=== PATIENT | male | born 1950 | race Caucasian/White ===

== ENCOUNTER 2016-09-09 17:07 | Emergency (ER) | payer MEDICARE, MEDICAID ==
--- NOTE | 2016-09-09 17:42 | RAD ---
INDICATION: Short of breath COMPARISON: Chest x-ray May 19, 2016; CT chest August 02, 2014 TECHNIQUE: An AP portable view obtained at 1720 hours is submitted. FINDINGS: Bones/Soft Tissues: There are no acute bony findings. There is postoperative change in the right chest with rib resection and deformity. There is a lesion with chondroid matrix in the inferior glenoid as also described on prior CT examinations. Cardiomediastinal: The cardiomediastinal silhouette is normal. Lungs: There are no infiltrates. There is hyperinflation. Pleura: There are no pleural effusions. Other: None IMPRESSION: NO ACTIVE DISEASE.
[2016-09-09 19:10] LABS: Hematocrit 47 % (42-52); Hemoglobin 15.2 g/dl (14.0-18.0); Mean Corpuscular HGB Conc 33 g/dl (31-36); Mean Corpuscular Hemoglobin 30 pg (27-31); Mean Corpuscular Volume 93 fL (80-94); Mean Platelet Volume 8 um3 (7.4-10.4); Red Blood Count 5.02 10^6/ul (4.0-5.4); Red Cell Distribution Width 14 % (10.5-15); White Blood Count 13.3 10^3/ul (3.5-10.8)
[2016-09-09 19:29] LABS: Albumin 4.4 g/dL (3.2-5.2); BUN/Creatinine Ratio 14.9 (8-20); Calcium 9.7 mg/dL (8.6-10.3); EGFR African American 112.6 (>60); EGFR Non-African American 87.5 (>60); Globulin 2.9 g/dL (2-4); Total Bilirubin 0.6 mg/dL (0.2-1.0); Total Protein 7.3 g/dL (6.4-8.9)
[2016-09-09 19:31] LABS: Troponin I 0.01 ng/mL (<0.04)
[2016-09-09 19:58] LABS: TSH (Thyroid Stimulating Horm) 0.79 mcIU/mL (0.34-5.60)
[2016-09-09 20:05] LABS: Free T4 1.02 ng/dL (0.61-1.12)
[2016-09-09] MEDS ORDERED: LORazepam INJ* 2 MG/ML 1 ML VIAL IV PUSH ONE (21:07)
[2016-09-09] MEDS ORDERED: NS 0.9% 1000 ML* 2,000 ML IV ONE (22:38)
[2016-09-09 23:58] VITALS: BP 154/95
--- NOTE | 2016-09-25 20:33 | ED ---
Jocelyn Moura Anna, scribed for Erwin Hawkins MD on 09/09/16 at 1806 . Shortness of Breath - HPI Summary HPI Summary: Patient is a 66 y/o male coming to [facility] presenting with sudden onset of constant weakness that began less than 32 hours ago. He additionally reports SOB , diarrhea since last night, myalgia, and nausea. Denies BP, coughing, wheezing , and fever. He reports leg cramping now and also at baseline. No known sick contacts. His history is significant for COPD and chronic bronchitis. Pt uses 3 L of O2 at baseline. His mother two days ago. - History of Current Complaint Time Seen by Provider: 09/09/16 17:12 Hx Obtained From: Patient - Allergy/Home Medications Allergies/Adverse Reactions: Allergies Allergy/AdvReac Type Severity Reaction Status Date / Time Milk Protein Extract Allergy Severe SWELLING Verified 05/19/16 14:29 [From Spiriva] OF LIPS,TONGUE AND FACE Tiotropium [From Spiriva] Allergy Severe SWELLING Verified 05/19/16 14:29 OF LIPS,TONGUE AND FACE Iodinated Contrast Media AdvReac Intermediate See Comment Verified 05/19/16 14: 29 [IV CONTRAST DYE] Home Medications: Home Medications Ipratropium HFA INHALER* [Atrovent Hfa Inhaler*] 1 puff INH QID PRN 09/09/16 [ History Confirmed 09/09/16] Tamsulosin CAP* [Flomax CAP*] 0.4 mg PO DAILY 09/09/16 [History Confirmed ] PMH/Surg Hx/FS Hx/Imm Hx Endocrine/Hematology History: Denies: Hx Anticoagulant Therapy, Hx Diabetes, Hx Thyroid Disease, Hx Anemia Comment Only: Other Endocrine/Hematological Disorders - Hemoptysis Cardiovascular History: Reports: Hx Angina Denies: Hx Hypertension, Hx Pacemaker/ICD Respiratory History: Reports: Hx Chronic Bronchitis, Hx Chronic Obstructive Pulmonary Disease (COPD) - emphysema, Other Respiratory Problems/Disorders - O2 at 3L 24hours/day, hemoptysis hx Denies: Hx Asthma GI History: Reports: Other GI Disorders - Hernias with mesh implanted Denies: Hx Jaundice History: Denies: Hx Renal Disease Musculoskeletal History: Reports: Hx Congenital Bone Abnormalities - Osteochromatosis, Other Musculoskeletal History - ribs removed, chronic muscle cramps Sensory History: Reports: Hx Cataracts, Hx Contacts or Glasses Denies: Hx Hearing Aid Opthamlomology History: Reports: Hx Cataracts, Hx Contacts or Glasses Neurological History: Reports: Hx Migraine, Hx Transient Ischemic Attacks (TIA) Denies: Hx Dementia, Hx Headaches, Hx Seizures Psychiatric History: Reports: Hx Anxiety, Hx Depression - ON MEDS, Hx Substance Abuse Denies: Hx Panic Disorder, Hx of Violent Episodes Against Others - Surgical History Surgery Procedure, Year, and Place: 2010 [place] [facility] [place] DIFFERENT SURGERIES FOR OSTEOCHROMOTOSIS (TUMORS), [place],. [place], [place] , [place] Hx Anesthesia Reactions: No - Immunization History Date of Tetanus Vaccine: up to date Date of Influenza Vaccine: 2016 Infectious Disease History: Denies: Hx Hepatitis, Hx Human Immunodeficiency Virus (HIV), Traveled Outside the in Last 30 Days - Family History Known Family History: Negative: Cardiac Disease - Social History Alcohol Use: None Hx Substance Use: No Substance Use Type: Reports: None Substance Use Comment - Amount & Last Used: poly drug abuse until 2001 Hx Tobacco Use: Yes Smoking Status (MU): Former Smoker Type: Cigarettes, Pipe Amount Used/How Often: 1 pk per day Length of Time of Smoking/Using Tobacco: 38 Have You Smoked in the Last Year: No Review of Systems Negative: Fever Negative: Chest Pain Positive: Shortness Of Breath. Negative: Cough, Other - denies wheezing Positive: Diarrhea, Nausea. Negative: Abdominal Pain, Vomiting Negative: dysuria, hematuria Positive: Myalgia, Other - Leg cramping. Negative: Edema Negative: Rash Neurological: Other - Denies dizziness Positive: Weakness All Other Systems Reviewed And Are Negative: Yes Physical Exam - Summary Physical Exam Summary: Constitutional: Well-developed, Well-nourished, Alert. (-) Distressed Skin: Warm, Dry HENT: Normocephalic; Atraumatic Eyes: Conjunctiva normal Neck: Musculoskeletal ROM normal neck. (-) JVD, (-) Stridor, (-) Tracheal deviation Cardio: Rhythm regular, rate tachycardic at 140 bpm, Heart sounds normal; Intact distal pulses; The pedal pulses are 2+ and symmetric. Radial pulses are 2 + and symmetric. ~(-) Murmur Pulmonary/Chest wall: Effort normal. (-) Respiratory distress, (-) Wheezes, (-) Rales Abd: Soft, (-) Tenderness, ~(-) Distension, (-) Guarding, (-) Rebound Musculoskeletal: (-) Edema Lymph: (-) Cervical adenopathy Neuro: Alert, Oriented x3 Psych: Patient is anxious-appearing with fast speech. Triage Information Reviewed: Yes Vital Signs On Initial Exam: Temp Pulse Resp BP Pulse Ox 98.4 F 111 26 162/92 100 09/09/16 18:46 09/09/16 19:00 09/09/16 19:00 09/09/16 19:00 09/09/16 19:00 Vital Signs Reviewed: Yes Diagnostics - Laboratory Result Diagrams: 09/09/16 18:55 09/09/16 18:55 Lab Statement: Any lab studies that have been ordered have been reviewed, and results considered in the medical decision making process. - Radiology CXR Xray Interpretation: No Acute Changes Radiology Interpretation Completed By: Radiologist - EKG 1703 Cardiac Rate: Tachycardia EKG Rhythm: Sinus Rhythm ST Segment: Normal Ectopy: None EKG Interpretation: no STEMI 2128 Cardiac Rate: Tachycardia - 138 bpm EKG Rhythm: Sinus Tachycardia ST Segment: Normal Ectopy: None EKG Interpretation: no STEMI Re-Evaluation - Re-Evaluation First Eval Re-Evaluation Time: 22:24 Change: Improved Comment: Patient reports that he is feeling much better and symptoms have resolved. Discussed results and plan of care with patient. Patient agrees with plan. Course/Dx - Course Assessment/Plan: Patient is a 66 y/o male coming to [facility] presenting with sudden onset of constant weakness that began less than 32 hours ago. He additionally reports SOB, diarrhea since last night, myalgia, and nausea. Denies BP, coughing, wheezing, and fever. He reports leg cramping now and also at baseline. No known sick contacts. His history is significant for COPD and chronic bronchitis. His mother two days ago. Upon PE, patient is anxious-appearing with fast speech. Pt uses 3 L of O2 at baseline. CXR reveals no acute disease. EKG reveals sinus tachycardia at 133 bpm. Repeat EKG reveals sinus tachycardia at 138 bpm. Labs reveal WBC of 13.3. Patient's WBC is chronically elevated, so this is baseline for him. Patient reports he is feeling better upon re-evaluation. He will be discharged home. - Diagnoses Provider Diagnoses: Adjustment disorder, Anxiety, Sinus tachycardia Discharge - Discharge Plan Condition: Stable Disposition: HOME Referrals: Parker Akins MD [Primary Care Provider] - Additional Instructions: Follow up with primary care physician within 48 hours. Return to the emergency department for changing or worsening symptoms. The documentation as recorded by the Jocelyn wick Anna accurately reflects the service I personally performed and the decisions made by , Erwin Hawkins MD.
== END 2016-09-10 00:06 | disposition home or self-care (01) ==
LOC: ED 17:07
DX: F43.20 Adjustment disorder, unspecified (principal); R00.0 Tachycardia, unspecified; F41.9 Anxiety disorder, unspecified; M79.1 Myalgia; R06.02 Shortness of breath; R53.1 Weakness; Z87.891 Personal history of nicotine dependence
CPT/HCPCS: 36415; 71010; 80053; 83605; 84439; 84443; 84484; 85025; 85379; 87502; 93005; 96374; 99284; J2060

== ENCOUNTER 2016-09-12 10:25 | Emergency (ER) | payer MEDICAID, MEDICARE ==
--- NOTE | 2016-09-12 11:16 | RAD ---
HISTORY: Chest pain COMPARISONS: September 09, 2016 VIEWS:1: Single frontal portable view of the chest at 11:00 AM FINDINGS: LINES AND TUBES: None. CARDIOMEDIASTINAL SILHOUETTE: The cardiomediastinal silhouette is normal for portable technique. PLEURA: The costophrenic angles are sharp. No pleural abnormalities are noted. LUNG PARENCHYMA: There is hyperinflation. ABDOMEN: The upper abdomen is clear. There is no subphrenic gas. BONES AND SOFT TISSUES: No bone or soft tissue abnormalities are noted. IMPRESSION: HYPERINFLATION. NO ACTIVE CARDIOPULMONARY DISEASE.
[2016-09-12 11:19] LABS: Hematocrit 44 % (42-52); Hemoglobin 14.4 g/dl (14.0-18.0); Mean Corpuscular HGB Conc 33 g/dl (31-36); Mean Corpuscular Hemoglobin 30 pg (27-31); Mean Corpuscular Volume 92 fL (80-94); Mean Platelet Volume 8 um3 (7.4-10.4); Red Blood Count 4.78 10^6/ul (4.0-5.4); Red Cell Distribution Width 14 % (10.5-15); White Blood Count 10.2 10^3/ul (3.5-10.8)
[2016-09-12 11:32] LABS: BUN/Creatinine Ratio 9.2 (8-20); Calcium 9.1 mg/dL (8.6-10.3); EGFR African American 112.6 (>60); EGFR Non-African American 87.5 (>60); Globulin 2.8 g/dL (2-4); Magnesium 1.8 mg/dL (1.9-2.7); Potassium 3.1 mmol/L (3.5-5.0); Total Bilirubin 0.5 mg/dL (0.2-1.0); Total Protein 6.8 g/dL (6.4-8.9)
[2016-09-12 11:35] LABS: Troponin I 0.01 ng/mL (<0.04)
[2016-09-12] MEDS ORDERED: NS 0.9% 1000 ML* 2,000 ML IV ONE (12:33)
[2016-09-12] MEDS ORDERED: Pantoprazole IV* 40 MG IV ONE (12:33)
[2016-09-12] MEDS ORDERED: Magnesium Sulfate 2 GM IV* 2 GM/50 ML BAG IVPB ONE (12:33)
--- NOTE | 2016-09-12 13:25 | RAD ---
CLINICAL HISTORY: Abdominal pain, diarrhea COMPARISON: March 27, 2009 TECHNIQUE: Multiple contiguous axial CT scans were obtained of the abdomen and pelvis, without intravenous contrast enhancement. Coronal and sagittal multiplanar reformations are submitted for review. Oral contrast was not administered. FINDINGS: The study is limited by the lack of intravenous contrast. This limits evaluation of the solid organs and vasculature. Evaluation is also limited by patient breathing motion artifact. LUNG BASES: The lung bases are clear. LIVER: The liver is normal in shape, size, contour, and attenuation. BILE DUCTS: There is no intrahepatic or extrahepatic biliary dilatation. GALLBLADDER: The gallbladder is normal, without pericholecystic inflammatory change. PANCREAS: The pancreas is normal, without mass or ductal dilatation. SPLEEN: Normal in size and appearance. UPPER GI TRACT: Evaluation of the gastrointestinal tract is limited by incomplete gastric distention. The upper GI tract is unremarkable. SMALL BOWEL AND MESENTERY: The small bowel is normal in contour, course, and caliber. There is no obstruction or dilatation. COLON: The colon is normal in contour, course, caliber. There is no pericolonic inflammatory change. ADRENALS: Normal bilaterally. KIDNEYS: The kidneys are normal in shape, size, contour, and axis. There is no hydronephrosis or nephrolithiasis. BLADDER: The bladder is smooth in contour. PELVIC ORGANS: The prostate gland is normal. The seminal vesicles are symmetric. AORTA: There is mild atherosclerotic disease of the abdominal aorta. IVC: Unremarkable LYMPH NODES: There is no lymphadenopathy by size criteria. ABDOMINAL WALL: There is no evidence for abdominal wall hernia. BONES AND SOFT TISSUES: Again noted are multiple pelvic and femoral osteochondromas, with associated degenerative changes. OTHER: None IMPRESSION: 1. LIMITED STUDY. 2. AGAIN NOTED ARE MULTIPLE PELVIC AND FEMORAL OSTEOCHONDROMAS WITH ASSOCIATED DEGENERATIVE CHANGE. 3. NO ACUTE NONCONTRAST CT PATHOLOGY OF THE VISUALIZED ABDOMEN AND PELVIS.
--- NOTE | 2016-09-12 14:44 | ED ---
Ulises Moura Janilya, scribed for Arnold Hooper MD on 09/12/16 at 1243 . Shortness of Breath - HPI Summary HPI Summary: A 66 y/o [facility] presenting w/ a gradual onset of constant SOB starting 3-4 days ago. Pt states that he's recently been under a lot of stress because his mother 5 days ago. In addition to dyspnea, pt reports he 's been dry heaving and having the taste of his medicine in the mouth. He has not actually vomited because nothing comes up. He also states his heart is going through his chest and that there is burning in his stomach. In addition, he has been having diarrhea for the past 5-6 days with no blood in stool. He also has abd pain since last night. Pt says that he drank milk to alleviate the abd pain with no relief. Pt is not on Abx. Pt was seen here on , Sep 09, 2016 for COPD exacerbation. - History of Current Complaint Chief Complaint: EDChestPainROMI Time Seen by Provider: 09/12/16 11:44 Hx Obtained From: Patient Onset/Duration: Gradual Onset, Lasting Days, Still Present Timing: Constant Current Severity: Moderate Aggrevating Factors: Nothing Alleviating Factors: Nothing - Allergy/Home Medications Allergies/Adverse Reactions: Allergies Allergy/AdvReac Type Severity Reaction Status Date / Time Milk Protein Extract Allergy Severe SWELLING Verified 05/19/16 14:29 [From Spiriva] OF LIPS,TONGUE AND FACE Tiotropium [From Spiriva] Allergy Severe SWELLING Verified 05/19/16 14:29 OF LIPS,TONGUE AND FACE Iodinated Contrast Media AdvReac Intermediate See Comment Verified 05/19/16 14: 29 [IV CONTRAST DYE] Home Medications: Home Medications Albuterol HFA INHALER* [Ventolin HFA Inhaler*] 09/12/16 [History] Atrovent 09/12/16 [History] Docusate Sodium [Stool Softener] 100 mg PO 09/12/16 [History] PMH/Surg Hx/FS Hx/Imm Hx Previously Healthy: Yes Endocrine/Hematology History: Denies: Hx Anticoagulant Therapy, Hx Diabetes, Hx Thyroid Disease, Hx Anemia Comment Only: Other Endocrine/Hematological Disorders - Hemoptysis Cardiovascular History: Reports: Hx Angina Denies: Hx Hypertension, Hx Pacemaker/ICD Respiratory History: Reports: Hx Chronic Bronchitis, Hx Chronic Obstructive Pulmonary Disease (COPD) - emphysema, Other Respiratory Problems/Disorders - O2 at 3L 24hours/day, hemoptysis hx Denies: Hx Asthma GI History: Reports: Other GI Disorders - Hernias with mesh implanted Denies: Hx Jaundice History: Denies: Hx Renal Disease Musculoskeletal History: Reports: Hx Congenital Bone Abnormalities - Osteochromatosis, Other Musculoskeletal History - ribs removed, chronic muscle cramps Sensory History: Reports: Hx Cataracts, Hx Contacts or Glasses Denies: Hx Hearing Aid Opthamlomology History: Reports: Hx Cataracts, Hx Contacts or Glasses Neurological History: Reports: Hx Migraine, Hx Transient Ischemic Attacks (TIA) Denies: Hx Dementia, Hx Headaches, Hx Seizures Psychiatric History: Reports: Hx Anxiety, Hx Depression - ON MEDS, Hx Substance Abuse Denies: Hx Panic Disorder, Hx of Violent Episodes Against Others - Surgical History Surgery Procedure, Year, and Place: 2010 LEFT INGUINAL HERNIA SURGERY, [place] [address] DIFFERENT SURGERIES FOR OSTEOCHROMOTOSIS (TUMORS), [place],. [place], [place] , [place] Hx Anesthesia Reactions: No - Immunization History Date of Tetanus Vaccine: up to date Date of Influenza Vaccine: 2016 Infectious Disease History: No Infectious Disease History: Denies: Hx Hepatitis, Hx Human Immunodeficiency Virus (HIV), Traveled Outside the in Last 30 Days - Social History Alcohol Use: None Hx Substance Use: No Substance Use Type: Reports: None Substance Use Comment - Amount & Last Used: poly drug abuse until 2001 Hx Tobacco Use: Yes Smoking Status (MU): Former Smoker Type: Cigarettes, Pipe Amount Used/How Often: 1 pk per day Length of Time of Smoking/Using Tobacco: 38 Have You Smoked in the Last Year: No Review of Systems Positive: Palpitations - "heart going through the chest" Positive: Shortness Of Breath Positive: Abdominal Pain, Diarrhea - no blood in stool, Other - dry heaving; burning in stomach. . Negative: Vomiting All Other Systems Reviewed And Are Negative: Yes Physical Exam Triage Information Reviewed: Yes Vital Signs On Initial Exam: Initial Vitals Temp Pulse Resp BP Pulse Ox 98.6 F 133 28 139/100 91 09/12/16 10:28 09/12/16 10:28 09/12/16 10:28 09/12/16 10:28 09/12/16 10:28 Vital Signs Reviewed: Yes Appearance: Positive: Well-Appearing, No Pain Distress Skin: Positive: Warm, Skin Color Reflects Adequate Perfusion, Dry Head/Face: Positive: Normal Head/Face Inspection Eyes: Positive: EOMI, ARAVIND ENT: Positive: Normal ENT inspection Neck: Positive: Supple, Nontender Respiratory/Lung Sounds: Positive: Clear to Auscultation, Breath Sounds Present , Wheezes - occasional wheezing in lungs Cardiovascular: Positive: Tachycardia Abdomen Description: Positive: Other: - Mild mid abd tenderness. Sulfur smelling burps.. Negative: Nontender, Soft Bowel Sounds: Positive: Hypoactive Musculoskeletal: Positive: Normal, Strength/ROM Intact Neurological: Positive: Normal, Sensory/Motor Intact, Alert, Oriented to Person Place, Time Psychiatric: Positive: Affect/Mood Appropriate Diagnostics - Vital Signs Vital Signs Temp Pulse Resp BP Pulse Ox 09/12/16 11:22 114 25 98 09/12/16 10:28 98.6 F 133 28 139/100 91 - Laboratory Lab Results: Lab Results 09/12/16 09/12/16 Range/Units 10:55 10:55 WBC 10.2 (3.5-10.8) 10^3/ul RBC 4.78 (4.0-5.4) 10^6/ul Hgb 14.4 (14.0-18.0) g/dl Hct 44 (42-52) % MCV 92 (80-94) fL MCH 30 (27-31) pg MCHC 33 (31-36) g/dl RDW 14 (10.5-15) % Plt Count 397 (150-450) 10^3/ul MPV 8 (7.4-10.4) um3 Neut % (Auto) 69.1 (38-83) % Lymph % (Auto) 18.1 L (25-47) % Pleasants % (Auto) 10.9 H (1-9) % Eos % (Auto) 0.9 (0-6) % Baso % (Auto) 1.0 (0-2) % Absolute Neuts (auto) 7.1 (1.5-7.7) 10^3/ul Absolute Lymphs (auto) 1.9 (1.0-4.8) 10^3/ul Absolute Monos (auto) 1.1 H (0-0.8) 10^3/ul Absolute Eos (auto) 0.1 (0-0.6) 10^3/ul Absolute Basos (auto) 0.1 (0-0.2) 10^3/ul Absolute Nucleated RBC 0.01 10^3/ul Nucleated RBC % 0.1 Sodium 136 (133-145) mmol/L Potassium 3.1 L (3.5-5.0) mmol/L Chloride 101 (101-111) mmol/L Carbon Dioxide 30 (22-32) mmol/L Anion Gap 5 (2-11) mmol/L BUN 8 (6-24) mg/dL Creatinine 0.87 (0.67-1.17) mg/dL Est GFR ( Amer) 112.6 (>60) Est GFR (Non-Af Amer) 87.5 (>60) BUN/Creatinine Ratio 9.2 (8-20) Glucose 93 (70-100) mg/dL Calcium 9.1 (8.6-10.3) mg/dL Magnesium 1.8 L (1.9-2.7) mg/dL Total Bilirubin 0.50 (0.2-1.0) mg/dL AST 32 (13-39) U/L ALT 32 (7-52) U/L Alkaline Phosphatase 72 (34-104) U/L Total Creatine Kinase 319 H (10-223) U/L CK-MB (CK-2) 8.5 H (0.6-6.3) ng/mL Troponin I 0.01 (<0.04) ng/mL Total Protein 6.8 (6.4-8.9) g/dL Albumin 4.0 (3.2-5.2) g/dL Globulin 2.8 (2-4) g/dL Albumin/Globulin Ratio 1.4 (1-3) Result Diagrams: 09/12/16 10:55 09/12/16 10:55 Lab Statement: Any lab studies that have been ordered have been reviewed, and results considered in the medical decision making process. - Radiology CXR Xray Interpretation: Positive (See Comments) - IMPRESSION: HYPERINFLATION. NO ACTIVE CARDIOPULMONARY DISEASE. Radiology Interpretation Completed By: Radiologist - CT abd/pel CT Interpretation: Positive (See Comments) - IMPRESSION: 1. LIMITED STUDY. 2. AGAIN NOTED ARE MULTIPLE PELVIC AND FEMORAL OSTEOCHONDROMAS WITH ASSOCIATED DEGENERATIVE CHANGE. 3. NO ACUTE NONCONTRAST CT PATHOLOGY OF THE VISUALIZED ABDOMEN AND PELVIS. CT Interpretation Completed By: Radiologist - EKG 1034 Cardiac Rate: Tachycardia - 121 bpm EKG Rhythm: Sinus Tachycardia Ectopy: None EKG Interpretation: Depressed ST in V3 Re-Evaluation - Re-Evaluation First Eval Re-Evaluation Time: 13:27 Change: Unchanged Comment: Pt denies hospital admission. Course/Dx - Course Assessment/Plan: DISCUSSED RESULTS WITH PATIENT. I RECOMMENDED ADMISSION DUE TO CONTINUED TACHYCARDIA. PATIENT DECLINED ADMISSION. HE AGREED TO RETURN IF WORSE. DISCHARGE HOME STABLE. - Diagnoses Provider Diagnoses: Abdominal pain, Diarrhea, Dyspnea, Tachycardia Discharge - Discharge Plan Condition: Stable Disposition: HOME Prescriptions: Omeprazole CAP* [Prilosec CAP* 20 MG] 20 mg PO BID #30 cap. Ondansetron ODT TAB* [Zofran Odt TAB*] 4 mg PO Q6H PRN #10 tab.odt PRN Reason: Nausea Patient Education Materials: Abdominal Pain (ED), Acute Diarrhea (ED), Dyspnea (ED) Referrals: Parker Akins MD [Primary Care Provider] - Additional Instructions: FOLLOW UP WITH YOUR DOCTOR. RETURN TO THE EMERGENCY DEPARTMENT FOR ANY WORSENING OF YOUR CONDITION; PAIN, SHORTNESS OF BREATH, BLOOD IN YOUR STOOL, YOU FEEL ILL, YOU FEEL LIKE PASSING OUT OR QUESTIONS OR CONCERNS. The documentation as recorded by the Ulises wick Janilya accurately reflects the service I personally performed and the decisions made by me, Arnold Hooper MD.
[2016-09-12 16:07] VITALS: BP 150/80
--- NOTE | 2016-09-13 09:24 | PN ---
Progress Note - Progress Note Note: preliminary negative for c-diff positive for WBC. will wait for final results including shigella, giardia etc.
== END 2016-09-12 16:08 | disposition home or self-care (01) ==
LOC: ED 10:25
DX: R10.9 Unspecified abdominal pain (principal); R06.00 Dyspnea, unspecified; R06.02 Shortness of breath; R19.7 Diarrhea, unspecified; R00.0 Tachycardia, unspecified; R00.2 Palpitations; Z87.891 Personal history of nicotine dependence
CPT/HCPCS: 36415; 71010; 74176; 80053; 82272; 82550; 82553; 83630; 83735; 83880; 84484; 85025; 85610; 87045; 87046; 87328; 87329; 87493; 87899; 93005; 96374; 99284; J3475

== ENCOUNTER 2016-11-02 14:37 | Emergency (ER) | payer MEDICARE ==
[2016-11-02] MEDS ORDERED: LORazepam INJ* 2 MG/ML 1 ML VIAL IV ONE (15:11)
[2016-11-02] MEDS ORDERED: Ketorolac INJ* 30 MG/ML 1 ML VIAL IV ONE (15:11)
--- NOTE | 2016-11-02 16:09 | RAD ---
Indication: Neck pain. CT of the cervical spine was obtained in the axial plane. Sagittal and coronal reconstructed images were obtained. Mastoid air cells demonstrates no evidence of abnormal fluid. The C1 ring is intact. The vertebral bodies appear normal in height. No evidence of fracture is noted. At C2-C3 there is no evidence of disc protrusion. No central foraminal stenosis is noted. At C3-C4 and C4-C5 there is degenerative disc disease with spondylytic ridge. No fractures identified. At C5-C6 and C6-C7 no focal protrusion is identified. No central foraminal stenosis is noted. No fracture of the cervical spine is noted. IMPRESSION: NO FRACTURE OF THE CERVICAL SPINE IS NOTED. MULTILEVEL DEGENERATIVE DISC DISEASE IS PRESENT..
[2016-11-02 17:56] VITALS: BP 129/69
[2016-11-02] MEDS ORDERED: HYDROcodone/ACETAMIN 5-325 MG* 1 TAB PO ONE (19:00)
--- NOTE | 2016-11-02 22:01 | ED ---
Milady Moura Erika, scribed for Trace Martínez MD on 11/02/16 at 1629 . Neck Pain - HPI Summary HPI Summary: Patient is a 66-year-old male presenting to the ED with a CC of left-sided neck pain for the past 8 days. Pain radiates into the left shoulder, and patient notes tingling in the 2nd-5th fingers of the left hand. He denies pain in the rest of the left arm. Patient reports that pain was initially alleviated by ice packs, but this stopped working after a few days. Pain is aggravated by moving the neck to the right side, and is also aggravated by palpation. Patient notes some nausea earlier. He denies Hx neck problems. Hx anxiety. - History of Current Complaint Chief Complaint: EDNeckComplaint Stated Complaint: NECK PAIN Time Seen by Provider: 11/02/16 15:02 Hx Obtained From: Patient Mechanism Of Injury: No Known Trauma Timing: Constant, Lasting Days - 8 days Onset/Duration: Gradual Onset Severity Currently: Moderate Pain Intensity: 10 Pain Scale Used: 0-10 Numeric Location: Discrete At: - L side of neck Aggravating Factors: Position, Movement Alleviating Factors: Ice - initially Associated Signs & Symptoms: Positive: Paresthesia - L fingers - Allergies/Home Medications Allergies/Adverse Reactions: Allergies Allergy/AdvReac Type Severity Reaction Status Date / Time Milk Protein Extract Allergy Severe SWELLING Verified 05/19/16 14:29 [From Spiriva] OF LIPS,TONGUE AND FACE Tiotropium [From Spiriva] Allergy Severe SWELLING Verified 05/19/16 14:29 OF LIPS,TONGUE AND FACE Iodinated Contrast Media AdvReac Intermediate See Comment Verified 05/19/16 14: 29 [IV CONTRAST DYE] PMH/Surg Hx/FS Hx/Imm Hx Endocrine/Hematology History: Denies: Hx Anticoagulant Therapy, Hx Diabetes, Hx Thyroid Disease, Hx Anemia Comment Only: Other Endocrine/Hematological Disorders - Hemoptysis Cardiovascular History: Reports: Hx Angina Denies: Hx Hypertension, Hx Pacemaker/ICD Respiratory History: Reports: Hx Chronic Bronchitis, Hx Chronic Obstructive Pulmonary Disease (COPD) - emphysema, Other Respiratory Problems/Disorders - O2 at 3L 24hours/day, hemoptysis hx Denies: Hx Asthma GI History: Reports: Other GI Disorders - Hernias with mesh implanted Denies: Hx Jaundice History: Denies: Hx Renal Disease Musculoskeletal History: Reports: Hx Congenital Bone Abnormalities - Osteochromatosis, Other Musculoskeletal History - ribs removed, chronic muscle cramps Sensory History: Reports: Hx Cataracts, Hx Contacts or Glasses Denies: Hx Hearing Aid Opthamlomology History: Reports: Hx Cataracts, Hx Contacts or Glasses Neurological History: Reports: Hx Migraine, Hx Transient Ischemic Attacks (TIA) Denies: Hx Dementia, Hx Headaches, Hx Seizures Psychiatric History: Reports: Hx Anxiety, Hx Depression - ON MEDS, Hx Substance Abuse Denies: Hx Panic Disorder, Hx of Violent Episodes Against Others - Surgical History Surgery Procedure, Year, and Place: 2010 LEFT INGUINAL HERNIA SURGERY, [facility] – [place]. 24 DIFFERENT SURGERIES FOR OSTEOCHROMOTOSIS (TUMORS), [place],. [place], [place] , [place] Hx Anesthesia Reactions: No - Immunization History Date of Tetanus Vaccine: up to date Date of Influenza Vaccine: 2015 Infectious Disease History: No Infectious Disease History: Denies: Hx Hepatitis, Hx Human Immunodeficiency Virus (HIV), Traveled Outside the [place] in Last 30 Days - Family History Known Family History: Positive: Other - CVA - Social History Alcohol Use: None Hx Substance Use: No Substance Use Type: Reports: None Substance Use Comment - Amount & Last Used: poly drug abuse until 2001 Hx Tobacco Use: Yes Smoking Status (MU): Former Smoker Type: Cigarettes, Pipe Amount Used/How Often: 1 pk per day Length of Time of Smoking/Using Tobacco: 38 Have You Smoked in the Last Year: No Review of Systems Positive: Myalgia - neck pain, radiating to L shoulder Positive: Paresthesia - fingers of L hand All Other Systems Reviewed And Are Negative: Yes Physical Exam Triage Information Reviewed: Yes Vital Signs On Initial Exam: Initial Vitals Temp Pulse Resp BP Pulse Ox 98.3 F 137 20 178/84 99 11/02/16 14:38 11/02/16 14:38 11/02/16 14:38 11/02/16 14:38 11/02/16 14:38 Vital Signs Reviewed: Yes Appearance: Positive: Well-Appearing, No Pain Distress Skin: Positive: Warm, Skin Color Reflects Adequate Perfusion, Dry Head/Face: Positive: Normal Head/Face Inspection Eyes: Positive: Normal ENT: Positive: Normal ENT inspection Neck: Positive: Supple, Other: - Tender to palpation of the sternocleidomastoid on the left side Respiratory/Lung Sounds: Positive: Clear to Auscultation, Breath Sounds Present Cardiovascular: Positive: Tachycardia - at 137 bpm on triage Abdomen Description: Positive: Nontender, Soft Bowel Sounds: Positive: Present Musculoskeletal: Positive: Normal Neurological: Positive: Normal Psychiatric: Positive: Affect/Mood Appropriate Diagnostics - Vital Signs Vital Signs Temp Pulse Resp BP Pulse Ox 11/02/16 14:42 98.3 F 137 20 178/84 99 11/02/16 14:38 98.3 F 137 20 178/84 99 - Laboratory Lab Statement: Any lab studies that have been ordered have been reviewed, and results considered in the medical decision making process. - CT CT C spine CT Interpretation Completed By: Radiologist - IMPRESSION: NO FRACTURE OF THE CERVICAL SPINE IS NOTED. MULTILEVEL DEGENERATIVE DISC DISEASE IS PRESENT.. - EKG 14:52 Cardiac Rate: Tachycardia - at 126 bpm EKG Rhythm: Sinus Tachycardia ST Segment: Non-Specific Ectopy: PACs Re-Evaluation - Re-Evaluation First Eval Re-Evaluation Time: 16:38 Comment: Discussed results with patient Neck Course/Dx - Course Course Of Treatment: Mr. Ortega is tender at the origin of his left SCM and his most painfull movement is consistently lokking to the right. I recommended ibuprofen and will bridge him with some pain meds. - Diagnoses Provider Diagnoses: Sternocleidomastoid muscle tenderness Discharge - Discharge Plan Condition: Stable Disposition: HOME Prescriptions: HYDROcodone/ACETAMIN 5-325 MG* [Mcdougal 5-325 TAB*] 1 tab PO Q6H PRN #20 tab MDD 4 PRN Reason: Pain Patient Education Materials: Tendinitis (ED) Referrals: Parker Akins MD [Primary Care Provider] - Additional Instructions: Please follow up with your PCP. Recommend ibuprofen for the pain. The documentation as recorded by the Milady wick Erika accurately reflects the service I personally performed and the decisions made by me, Trace Martínez MD.
== END 2016-11-02 17:54 | disposition home or self-care (01) ==
LOC: ED 14:37
DX: M79.1 Myalgia (principal); Z87.891 Personal history of nicotine dependence; J44.9 Chronic obstructive pulmonary disease, unspecified; F41.9 Anxiety disorder, unspecified; F32.9 Major depressive disorder, single episode, unspecified
CPT/HCPCS: 72125; 93005; 96374; 96375; 99283; J1885; J2060

== ENCOUNTER 2016-11-06 23:41 | Emergency (ER) | payer MEDICARE, MEDICAID ==
[2016-11-06] MEDS ORDERED: Albuterol/Ipratropium NEB.SOL* Albuterol 2.5 MG/Ipratropium 0.5 MG 3 ML INH ONE (23:57)
[2016-11-06] MEDS ORDERED: methylPREDNISolone SOD SUCC* 125 MG 2 ML VIAL IV ONE (23:57)
[2016-11-06] MEDS ORDERED: NS 0.9% 1000 ML* 1,000 ML IV ONE (23:57)
--- NOTE | 2016-11-07 00:24 | ED ---
Jael Moura Michael, scribed for Gilberto Puri MD on 11/06/16 at 2359 . Shortness of Breath - HPI Summary HPI Summary: 66 y/o male comes to the ED presenting with intermittent episodes of SOB that started 3 days ago. The pt reports that the SOB is alleviated with his inhaler and 3 L of home oxygen per day. He also c/o diarrhea that started today and possible codeine withdrawal. The PMHx is significant for emphysema and COPD. - History of Current Complaint Chief Complaint: EDShortnessOfBreath Time Seen by Provider: 11/06/16 23:50 Hx Obtained From: Patient, Medical Records Onset/Duration: Gradual Onset Timing: Intermittent Episodes Lasting: Current Severity: Moderate Dyspnea At: Rest Aggrevating Factors: Nothing Alleviating Factors: Oxygen - Allergy/Home Medications Allergies/Adverse Reactions: Allergies Allergy/AdvReac Type Severity Reaction Status Date / Time Milk Protein Extract Allergy Severe SWELLING Verified 05/19/16 14:29 [From Spiriva] OF LIPS,TONGUE AND FACE Tiotropium [From Spiriva] Allergy Severe SWELLING Verified 05/19/16 14:29 OF LIPS,TONGUE AND FACE Iodinated Contrast Media AdvReac Intermediate See Comment Verified 05/19/16 14: 29 [IV CONTRAST DYE] PMH/Surg Hx/FS Hx/Imm Hx Endocrine/Hematology History: Denies: Hx Anticoagulant Therapy, Hx Diabetes, Hx Thyroid Disease, Hx Anemia Comment Only: Other Endocrine/Hematological Disorders - Hemoptysis Cardiovascular History: Reports: Hx Angina Denies: Hx Hypertension, Hx Pacemaker/ICD Respiratory History: Reports: Hx Chronic Bronchitis, Hx Chronic Obstructive Pulmonary Disease (COPD) - emphysema, Other Respiratory Problems/Disorders - O2 at 3L 24hours/day, hemoptysis hx Denies: Hx Asthma GI History: Reports: Other GI Disorders - Hernias with mesh implanted Denies: Hx Jaundice History: Denies: Hx Renal Disease Musculoskeletal History: Reports: Hx Congenital Bone Abnormalities - Osteochromatosis, Other Musculoskeletal History - ribs removed, chronic muscle cramps Sensory History: Reports: Hx Cataracts, Hx Contacts or Glasses Denies: Hx Hearing Aid Opthamlomology History: Reports: Hx Cataracts, Hx Contacts or Glasses Neurological History: Reports: Hx Migraine, Hx Transient Ischemic Attacks (TIA) Denies: Hx Dementia, Hx Headaches, Hx Seizures Psychiatric History: Reports: Hx Anxiety, Hx Depression - ON MEDS, Hx Substance Abuse Denies: Hx Panic Disorder, Hx of Violent Episodes Against Others - Surgical History Surgery Procedure, Year, and Place: 2010 LEFT [place]INAL [place] [facility] [place] DIFFERENT SURGERIES FOR OSTEOCHROMOTOSIS (TUMORS), [place],. [place], [place] , [place] Hx Anesthesia Reactions: No - Immunization History Date of Tetanus Vaccine: up to date Date of Influenza Vaccine: 2016 Infectious Disease History: No Infectious Disease History: Denies: Hx Hepatitis, Hx Human Immunodeficiency Virus (HIV), Traveled Outside the [place] in Last 30 Days - Family History Known Family History: Positive: Other - CVA - Social History Occupation: Disabled Lives: Alone Alcohol Use: None Hx Substance Use: No Substance Use Type: Reports: None Substance Use Comment - Amount & Last Used: poly drug abuse until 2001 Hx Tobacco Use: Yes Smoking Status (MU): Former Smoker Type: Cigarettes, Pipe Amount Used/How Often: 1 pk per day Length of Time of Smoking/Using Tobacco: 38 Have You Smoked in the Last Year: No Review of Systems Positive: Shortness Of Breath Positive: Diarrhea All Other Systems Reviewed And Are Negative: Yes Physical Exam Triage Information Reviewed: Yes Vital Signs On Initial Exam: Initial Vitals Temp Pulse Resp BP Pulse Ox 99.3 F 129 21 165/107 95 11/06/16 23:47 11/06/16 23:47 11/06/16 23:47 11/06/16 23:47 11/06/16 23:47 Vital Signs Reviewed: Yes Appearance: Positive: No Pain Distress, Thin Skin: Positive: Warm Head/Face: Positive: Normal Head/Face Inspection Eyes: Positive: ARAVIND ENT: Positive: Hearing grossly normal Neck: Positive: Supple Respiratory/Lung Sounds: Positive: Clear to Auscultation, Decreased Breath Sounds, Wheezes - few s csattered Cardiovascular: Positive: Tachycardia Abdomen Description: Positive: Nontender, Soft Bowel Sounds: Positive: Present Musculoskeletal: Positive: Strength/ROM Intact Diagnostics - Vital Signs Vital Signs Temp Pulse Resp BP Pulse Ox 11/06/16 23:47 99.3 F 129 21 165/107 95 - Laboratory Result Diagrams: 11/07/16 00:15 11/07/16 00:15 Lab Statement: Any lab studies that have been ordered have been reviewed, and results considered in the medical decision making process. - Radiology CXR Xray Interpretation: No Acute Changes Radiology Interpretation Completed By: ED Physician - EKG EK EKG Rhythm: Sinus Tachycardia - 125 bpm Re-Evaluation - Re-Evaluation First Eval Change: Improved Course/Dx - Diagnoses Provider Diagnoses: COPD (chronic obstructive pulmonary disease) Discharge - Discharge Plan Condition: Stable Disposition: HOME Prescriptions: predniSONE TAB* [Deltasone TAB*] 40 mg PO DAILY #8 tab Patient Education Materials: COPD (Chronic Obstructive Pulmonary Disease) (ED) Referrals: Parker Akins MD [Primary Care Provider] - Additional Instructions: You should follow up with Dr. Akins within the next 2-3 days. The documentation as recorded by the Jael wick Michael accurately reflects the service I personally performed and the decisions made by me, Gilberto Puri MD.
[2016-11-07 00:37] LABS: Hematocrit 41 % (42-52); Mean Corpuscular HGB Conc 34 g/dl (31-36); Mean Corpuscular Hemoglobin 31 pg (27-31); Mean Corpuscular Volume 91 fL (80-94); Mean Platelet Volume 8 um3 (7.4-10.4); Red Blood Count 4.49 10^6/ul (4.0-5.4); Red Cell Distribution Width 14 % (10.5-15); White Blood Count 7.7 10^3/ul (3.5-10.8)
[2016-11-07 00:42] LABS: Albumin 3.8 g/dL (3.2-5.2); BUN/Creatinine Ratio 11.9 (8-20); Calcium 9.2 mg/dL (8.6-10.3); EGFR African American 117.2 (>60); EGFR Non-African American 91.1 (>60); Globulin 2.8 g/dL (2-4); Potassium 3.9 mmol/L (3.5-5.0); Total Bilirubin 0.3 mg/dL (0.2-1.0); Total Protein 6.6 g/dL (6.4-8.9)
[2016-11-07 00:44] LABS: Troponin I 0.02 ng/mL (<0.04)
[2016-11-07 01:24] VITALS: BP 159/94
--- NOTE | 2016-11-07 07:36 | RAD ---
HISTORY: Chest pain COMPARISONS: September 12, 2016 VIEWS: 2: Frontal and lateral views of the chest. FINDINGS: CARDIOMEDIASTINAL SILHOUETTE: The cardiomediastinal silhouette is normal. SANTO: The santo are normal. PLEURA: The costophrenic angles are sharp. No pleural abnormalities are noted. LUNG PARENCHYMA: There is hyperinflation with flattening of the diaphragm and expansion of the AP diameter of the chest. ABDOMEN: The upper abdomen is clear. There is no subphrenic gas. BONES AND SOFT TISSUES: There is posttraumatic versus postsurgical change to the left hemithorax. There is diffuse osteopenia OTHER: None. IMPRESSION: HYPERINFLATION. NO ACTIVE CARDIOPULMONARY DISEASE.
== END 2016-11-07 01:17 | disposition home or self-care (01) ==
LOC: ED 23:41
DX: R06.02 Shortness of breath (principal); Z87.891 Personal history of nicotine dependence; R19.7 Diarrhea, unspecified
CPT/HCPCS: 36415; 71020; 80053; 83605; 84484; 85025; 93005; 96374; 99283; A9270-GY; J2930

== ENCOUNTER 2017-07-16 11:31 | Emergency (ER) | payer MEDICARE, MEDICAID ==
[2017-07-16] MEDS ORDERED: Artificial Tears* 15 ML BTL BOTH EYES ONE (14:11)
[2017-07-16 14:34] VITALS: BP 134/79
--- NOTE | 2017-07-17 08:20 | ED ---
Throat Pain/Nasal Congestion - HPI Summary HPI Summary: Patient presents to the ED with CC of red, burning and itchy eyes x 4 days. He has not tried anything for relief. He has hx of cataracts, but has never had these symptoms before. He has not seen an opthomolgogist recently, but has appt next week. Denies allergy symptoms, but notes to taking an inhaler with a steroid in it for COPD. He states he feels more dry in the eyes after this. Denies drainage or blurry vision. c/o burning worse in the morning upon wakening. Denies getting something in the eyes. - History of Current Complaint Chief Complaint: EDEyeProblem Time Seen by Provider: 07/16/17 12:19 Hx Obtained From: Patient Onset/Duration: Sudden Onset Severity: Moderate - Epiglottits Risk Factors Epiglottis Risk Factors: Negative - Allergies/Home Medications Allergies/Adverse Reactions: Allergies Allergy/AdvReac Type Severity Reaction Status Date / Time Milk Protein Extract Allergy Severe SWELLING Verified 05/19/16 14:29 [From Spiriva] OF LIPS,TONGUE AND FACE Tiotropium [From Spiriva] Allergy Severe SWELLING Verified 05/19/16 14:29 OF LIPS,TONGUE AND FACE Iodinated Contrast Media AdvReac Intermediate See Comment Verified 05/19/16 14: 29 [IV CONTRAST DYE] PMH/Surg Hx/FS Hx/Imm Hx Previously Healthy: No - COPD Endocrine/Hematology History: Denies: Hx Anticoagulant Therapy, Hx Diabetes, Hx Thyroid Disease, Hx Anemia Comment Only: Other Endocrine/Hematological Disorders - Hemoptysis Cardiovascular History: Reports: Hx Angina Denies: Hx Hypertension, Hx Pacemaker/ICD Respiratory History: Reports: Hx Chronic Bronchitis, Hx Chronic Obstructive Pulmonary Disease (COPD) - emphysema, Other Respiratory Problems/Disorders - O2 at 3L 24hours/day, hemoptysis hx Denies: Hx Asthma GI History: Reports: Other GI Disorders - Hernias with mesh implanted Denies: Hx Jaundice History: Denies: Hx Renal Disease Musculoskeletal History: Reports: Hx Congenital Bone Abnormalities - Osteochromatosis, Other Musculoskeletal History - ribs removed, chronic muscle cramps Sensory History: Reports: Hx Cataracts, Hx Contacts or Glasses Denies: Hx Hearing Aid Opthamlomology History: Reports: Hx Cataracts, Hx Contacts or Glasses Neurological History: Reports: Hx Migraine, Hx Transient Ischemic Attacks (TIA) Denies: Hx Dementia, Hx Headaches, Hx Seizures Psychiatric History: Reports: Hx Anxiety, Hx Depression - ON MEDS, Hx Substance Abuse Denies: Hx Panic Disorder, Hx of Violent Episodes Against Others - Surgical History Surgery Procedure, Year, and Place: 2010 LEFT INGUINAL HERNIA SURGERY, [facility] – [place]. 24 DIFFERENT SURGERIES FOR OSTEOCHROMOTOSIS (TUMORS), [place],. [place], [place] , [place] Hx Anesthesia Reactions: No - Immunization History Date of Tetanus Vaccine: up to date Date of Influenza Vaccine: 2016 Hx Pertussis Vaccination: No Immunizations Up to Date: Unable to Obtain/Confirm Infectious Disease History: No Infectious Disease History: Denies: Hx Hepatitis, Hx Human Immunodeficiency Virus (HIV), Traveled Outside the [place] in Last 30 Days - Family History Known Family History: Positive: Other - CVA - Social History Occupation: Unemployed, Disabled Lives: Alone Alcohol Use: None Alcohol Amount: quit 16 years ago Hx Substance Use: No Substance Use Type: Reports: Other Substance Use Comment - Amount & Last Used: poly drug abuse until 2001 Hx Tobacco Use: Yes Smoking Status (MU): Former Smoker Type: Cigarettes, Pipe Amount Used/How Often: 1 pk per day Length of Time of Smoking/Using Tobacco: 38 Have You Smoked in the Last Year: No Review of Systems Constitutional: Negative Negative: Fever, Chills, Fatigue Positive: Erythema, Other - burning sensation in the eyes. Negative: Photophobia, Blurred Vision, Diplopia, Drainage Cardiovascular: Negative Respiratory: Negative Positive: no symptoms reported, see HPI Musculoskeletal: Negative Neurological: Negative Psychological: Normal All Other Systems Reviewed And Are Negative: Yes Physical Exam Triage Information Reviewed: Yes Vital Signs On Initial Exam: Initial Vitals Temp Pulse Resp BP Pulse Ox 98.4 F 110 19 122/77 92 07/16/17 11:46 07/16/17 11:46 07/16/17 11:46 07/16/17 11:46 07/16/17 11:46 Vital Signs Reviewed: Yes Appearance: Positive: Well-Appearing, Well-Nourished Skin: Positive: Warm Head/Face: Positive: Normal Head/Face Inspection Eyes: Positive: EOMI, ARAVIND, Conjunctiva Inflammed ENT: Positive: Pharynx normal Neck: Positive: Supple Respiratory/Lung Sounds: Positive: Clear to Auscultation, Breath Sounds Present Cardiovascular: Positive: RRR, Pulses are Symmetrical in both Upper and Lower Extremities Musculoskeletal: Positive: Strength/ROM Intact Neurological: Positive: Speech Normal Psychiatric: Positive: Affect/Mood Appropriate Diagnostics - Vital Signs Vital Signs Temp Pulse Resp BP Pulse Ox 07/16/17 14:32 98.8 F 86 22 134/79 100 07/16/17 11:46 98.4 F 110 19 122/77 92 - Laboratory Lab Statement: Any lab studies that have been ordered have been reviewed, and results considered in the medical decision making process. EENT Course/Dx - Course Course Of Treatment: Patient is evaluated for red, burning and itchy eyes. Upon examination, there is noted to be erythema surrounding the eyelids without evidence of blepharitis. Bilateral eye injection and patient continues to squint. Given eye drops with relief. Appears to be severe dry eyes. He is given artificial tears in the ED and felt improved. He is encouraged to buy refresh OTC and use 5-6 times per day. He will follow up with opthomology this week. - Differential Diagnoses Differential Diagnoses: Conjunctivitis - Diagnoses Provider Diagnoses: Dry eyes, bilateral Discharge - Discharge Plan Condition: Stable Disposition: HOME Patient Education Materials: Eye Lubricant (Into the eye), Dry Eye Syndrome (ED ) Referrals: Parker Akins MD [Primary Care Provider] - Additional Instructions: Refresh Systane Thera-tears Please follow up with eye doctor and tell them your symptoms.
== END 2017-07-16 14:32 | disposition home or self-care (01) ==
LOC: ED 11:31
DX: H04.123 Dry eye syndrome of bilateral lacrimal glands (principal); Z87.891 Personal history of nicotine dependence
CPT/HCPCS: 99282; A9270-GY

== ENCOUNTER 2018-06-23 16:59 | Emergency (ER) | payer MEDICARE, MEDICAID ==
[2018-06-23] MEDS ORDERED: Nicotine Inhaler* 10 MG AMP INH PRN (17:24)
[2018-06-23 17:53] LABS: ABS Basophils 0 10^3/ul (0-0.2); ABS Eosinophils 0.1 10^3/ul (0-0.6); ABS Lymphocytes 1.8 10^3/ul (1.0-4.8); ABS Monocytes 0.7 10^3/ul (0-0.8); ABS Neutrophils 5.5 10^3/ul (1.5-7.7); ABS Nucleated RBC 0 10^3/ul; Eosinophil % 1.8 %; Hematocrit 41 % (42-52); Lymphocyte % 22.7 %; Mean Corpuscular HGB Conc 34 g/dl (31-36); Mean Corpuscular Hemoglobin 31 pg (27-31); Mean Corpuscular Volume 92 fL (80-94); Mean Platelet Volume 7.3 fL (7.4-10.4); Nucleated Red Blood Cells % 0; Platelet Count 461 10^3/ul (150-450); Red Cell Distribution Width 14 % (10.5-15); White Blood Count 8.2 10^3/ul (3.5-10.8)
[2018-06-23] MEDS ORDERED: Mouth Piece, Nicotine* 1 EACH CARTRIDGE INH ONE (18:00)
[2018-06-23 18:16] LABS: EGFR Non-African American 88.2 (>60)
--- NOTE | 2018-06-23 19:09 | ED ---
Psychiatric Complaint - HPI Summary HPI Summary: A 68y/o male brought in by [place] [facility] presents to [facility] with a chief complaint of an allergic reaction to Lexapro 5mg since 14:00 06/23/18. He states that he took Lexapro at 09:00, took a nap at 11:00 and woke up at 14:00 feeling disoriented. He said the room looks weird. He also said that he heard voices telling him to kill himself. He claims he was not hallucinating but everything looked strange. He denies SI and HI. Hx of emphysema and osteomatosis. - History Of Current Complaint Chief Complaint: EDAllergicReaction Time Seen by Provider: 06/23/18 17:12 Hx Obtained From: Patient, EMS Onset/Duration: Sudden Onset, Lasting Hours, Still Present Timing: Constant Severity Initially: Moderate Severity Currently: Moderate Aggravating Factor(s): Nothing Alleviating Factor(s): Nothing Associated Signs And Symptoms: Negative: Hallucinating Has Suicidal: Denies: Thoughts Has Homicidal: Denies: Thoughts - Allergies/Home Medications Allergies/Adverse Reactions: Allergies Allergy/AdvReac Type Severity Reaction Status Date / Time escitalopram [From Lexapro] Allergy Hallucinati Verified 06/23/18 17:25 ons Iodinated Contrast- Oral and Allergy See Comment Verified 06/23/18 17:25 IV Dye tiotropium Allergy Swelling Verified 06/23/18 17:25 [From Spiriva with Of HandiHaler] Face,Lips,& Throat PMH/Surg Hx/FS Hx/Imm Hx Endocrine/Hematology History: Denies: Hx Anticoagulant Therapy, Hx Diabetes, Hx Thyroid Disease, Hx Anemia Comment Only: Other Endocrine/Hematological Disorders - Hemoptysis Cardiovascular History: Reports: Hx Angina Denies: Hx Hypertension, Hx Pacemaker/ICD Respiratory History: Reports: Hx Chronic Bronchitis, Hx Chronic Obstructive Pulmonary Disease (COPD) - emphysema, Other Respiratory Problems/Disorders - O2 at 3L 24hours/day, hemoptysis hx Denies: Hx Asthma GI History: Reports: Other GI Disorders - Hernias with mesh implanted Denies: Hx Jaundice History: Denies: Hx Renal Disease Musculoskeletal History: Reports: Hx Congenital Bone Abnormalities - Osteochromatosis, Other Musculoskeletal History - ribs removed, chronic muscle cramps Sensory History: Reports: Hx Cataracts, Hx Contacts or Glasses Opthamlomology History: Reports: Hx Cataracts, Hx Contacts or Glasses Neurological History: Reports: Hx Migraine, Hx Transient Ischemic Attacks (TIA) Denies: Hx Dementia, Hx Headaches, Hx Seizures Psychiatric History: Reports: Hx Anxiety, Hx Depression - ON MEDS, Hx Substance Abuse Denies: Hx Eating Disorder, Hx Panic Disorder, Hx of Violent Episodes Against Others - Surgical History Surgery Procedure, Year, and Place: 2010 [place] [facility] [place]GER[place] FOR OSTEOCHROMOTOSIS (TUMORS), [place],. [place], [place] , [place] Hx Anesthesia Reactions: No - Immunization History Date of Tetanus Vaccine: up to date Date of Influenza Vaccine: 2016 Infectious Disease History: No Infectious Disease History: Denies: Hx Hepatitis, Hx Human Immunodeficiency Virus (HIV), Traveled Outside the [place] in Last 30 Days - Family History Known Family History: Positive: Other - CVA - Social History Alcohol Use: None Alcohol Amount: quit 16 years ago Hx Substance Use: No Substance Use Type: Reports: Other Substance Use Comment - Amount & Last Used: poly drug abuse until 2001 Hx Tobacco Use: Yes Smoking Status (MU): Former Smoker Type: Cigarettes, Pipe Amount Used/How Often: 1 pk per day Length of Time of Smoking/Using Tobacco: 38 Have You Smoked in the Last Year: No Review of Systems Negative: Fever Psychological: Other - Positive: "everything looks weird", voice telling him Negative: Other - negative: HI, SI All Other Systems Reviewed And Are Negative: Yes Physical Exam - Summary Physical Exam Summary: GENERAL: Patient is a well-developed and nourished M who is lying comfortable in the stretcher. Patient is not in any acute respiratory distress. HEAD AND FACE: Normocephalic EYES: PERRLA, EOMI x 2. EARS: Hearing grossly intact. MOUTH: Oropharynx within normal limits. NECK: Supple, trachea is midline, no adenopathy, no JVD, no carotid bruit. CHEST: Symmetric, no tenderness at palpation LUNGS: Clear to auscultation bilaterally. No wheezing or crackles. CVS: Regular rate and rhythm, S1 and S2 present, no murmurs or gallops appreciated. ABDOMEN: Soft, non-tender. Bowel sounds are normal. No abdominal abnormal pulsations. EXTREMITIES: Full ROM in all major joints, no edema, no cyanosis or clubbing. NEURO: Alert and oriented x 3. No acute neurological deficits. Speech is normal and follows commands. SKIN: Dry and warm Psych: denying SI and HI. Triage Information Reviewed: Yes Vital Signs On Initial Exam: Initial Vitals Temp Pulse Resp BP Pulse Ox 99.0 F 108 20 149/90 97 06/23/18 17:14 06/23/18 17:14 06/23/18 17:14 06/23/18 17:14 06/23/18 17:14 Vital Signs Reviewed: Yes Diagnostics - Vital Signs Vital Signs Temp Pulse Resp BP Pulse Ox 06/23/18 17:14 99.0 F 108 20 149/90 97 - Laboratory Lab Results: Lab Results 06/23/18 06/23/18 Range/Units 17:41 17:41 WBC 8.2 (3.5-10.8) 10^3/ul RBC 4.50 (4.00-5.40) 10^6/ul Hgb 14.0 (14.0-18.0) g/dl Hct 41 L (42-52) % MCV 92 (80-94) fL MCH 31 (27-31) pg MCHC 34 (31-36) g/dl RDW 14 (10.5-15) % Plt Count 461 H (150-450) 10^3/ul MPV 7.3 L (7.4-10.4) fL Neut % (Auto) 67.0 % Lymph % (Auto) 22.7 % Lyman % (Auto) 8.3 % Eos % (Auto) 1.8 % Baso % (Auto) 0.2 % Absolute Neuts (auto) 5.5 (1.5-7.7) 10^3/ul Absolute Lymphs (auto) 1.8 (1.0-4.8) 10^3/ul Absolute Monos (auto) 0.7 (0-0.8) 10^3/ul Absolute Eos (auto) 0.1 (0-0.6) 10^3/ul Absolute Basos (auto) 0 (0-0.2) 10^3/ul Absolute Nucleated RBC 0 10^3/ul Nucleated RBC % 0 Sodium 138 (135-145) mmol/L Potassium 4.0 (3.5-5.0) mmol/L Chloride 105 (101-111) mmol/L Carbon Dioxide 28 (22-32) mmol/L Anion Gap 5 (2-11) mmol/L BUN 12 (6-24) mg/dL Creatinine 0.86 (0.67-1.17) mg/dL Est GFR ( Amer) 106.7 (>60) Est GFR (Non-Af Amer) 88.2 (>60) BUN/Creatinine Ratio 14.0 (8-20) Glucose 94 (70-100) mg/dL Calcium 9.2 (8.6-10.3) mg/dL Total Bilirubin 0.60 (0.2-1.0) mg/dL AST 21 (13-39) U/L ALT 27 (7-52) U/L Alkaline Phosphatase 87 (34-104) U/L Total Protein 6.4 (6.4-8.9) g/dL Albumin 3.9 (3.2-5.2) g/dL Globulin 2.5 (2-4) g/dL Albumin/Globulin Ratio 1.6 (1-3) TSH 0.60 (0.34-5.60) mcIU/mL Salicylates < 2.50 (<30) mg/dL Acetaminophen < 15 mcg/mL Serum Alcohol < 10 (<10) mg/dL Result Diagrams: 06/23/18 17:41 06/23/18 17:41 Lab Statement: Any lab studies that have been ordered have been reviewed, and results considered in the medical decision making process. Course/Dx - Course Course Of Treatment: A 68y/o male brought in by [place] [facility] presents to [facility] with a chief complaint of an allergic reaction to Lexapro 5mg since 14:00 06/23/18. Workup is unremarkable. Patient denies SI and HI. Lab results obtained WNL. Dx: unspecified anxiety disorder. Per film historian, pt was cleared by Dr. Farnsworth, psych, for discharge. - Differential Dx/Clinical Impression Provider Diagnosis: Anxiety disorder, unspecified - Physician Notifications Discussed Care Of Patient With: Patricio Farnsworth Time Discussed With Above Provider: 18:55 Instructed by Provider To: Other - Per film historian, pt was cleared by Dr. Farnsworth, psych, for discharge. Discharge - Sign-Out/Discharge Documenting (check all that apply): Patient Departure - DC - Discharge Plan Condition: Stable Disposition: HOME Patient Education Materials: Anxiety (ED) Referrals: Parker Akins MD [Primary Care Provider] - Additional Instructions: Per completion of a mental health evaluation, you are cleared for release and do not require inpatient psychiatric hospitalization at this time. Please go to nearest emergency room or call 911 if safety concerns arise or condition worsens. Important Phone Numbers: [facility] ph:[phone] Suicide Prevention and Crisis Services ph:[phone] National Suicide Prevention Lifeline ph:[phone] (0957) [facility] ph:[phone] Alcoholics Anonymous ph: [facility] ph:[phone] [place] [employer] ph:[phone] RECOMMENDATION: Continue treatment with [facility] and follow up with primary prescriber. - Billing Disposition and Condition Condition: STABLE Disposition: Home - Attestation Statements Document Initiated by Scribe: Yes Documenting Scribe: Alon Sandoval Provider For Whom Scribe is Documenting (Include Credential): Alexandria Beltran MD Scribe Attestation: IAlon, scribed for Alexandria Beltran MD on 06/25/18 at 0234. Scribe Documentation Reviewed: Yes Provider Attestation: The documentation as recorded by the Alon wick accurately reflects the service I personally performed and the decisions made by , Elvis Beltran MD Status of Scribe Document: Viewed
[2018-06-23 19:21] VITALS: BP 144/77
== END 2018-06-23 19:25 | disposition home or self-care (01) ==
LOC: ED 16:59
DX: F41.9 Anxiety disorder, unspecified (principal); Z87.891 Personal history of nicotine dependence
CPT/HCPCS: 36415; 80053; 80320; 80329; 84443; 85025; 99284; G0480

== ENCOUNTER 2018-09-03 13:43 | Emergency (ER) | payer MEDICARE, MEDICAID ==
--- NOTE | 2018-09-03 14:07 | ED ---
Headache - HPI Summary HPI Summary: This patient is a 68 year old M presenting to [facility] with a chief complaint of lump on the R side of the head that began in 06/2018. The patient rates the pain 7/10 in severity. Symptoms aggravated by nothing. Symptoms alleviated by nothing. Patient reports headache (chronic). - History Of Current Complaint Chief Complaint: EDHeadache Stated Complaint: HEADACHE, Time Seen by Provider: 09/03/18 14:00 Hx Obtained From: Patient Onset/Duration: Sudden Onset, Started weeks ago, Still Present Initially Headache Was: Moderate Currently Pain Is: Moderate Timing: Constant Aggravating Factor: Nothing Allevating Factors: Nothing Associated Signs And Symptoms: Other (Noted In Comments) - Positive lump on R side of the head - Allergies/Home Medications Allergies/Adverse Reactions: Allergies Allergy/AdvReac Type Severity Reaction Status Date / Time escitalopram [From Lexapro] Allergy Hallucinati Verified 06/23/18 17:25 ons Iodinated Contrast- Oral and Allergy See Comment Verified 06/23/18 17:25 IV Dye tiotropium Allergy Swelling Verified 06/23/18 17:25 [From Spiriva with Of HandiHaler] Face,Lips,& Throat PMH/Surg Hx/FS Hx/Imm Hx Previously Healthy: No Endocrine/Hematology History: Denies: Hx Anticoagulant Therapy, Hx Diabetes, Hx Thyroid Disease, Hx Anemia Comment Only: Other Endocrine/Hematological Disorders - Hemoptysis Cardiovascular History: Reports: Hx Angina Denies: Hx Hypertension, Hx Pacemaker/ICD Respiratory History: Reports: Hx Chronic Bronchitis, Hx Chronic Obstructive Pulmonary Disease (COPD) - emphysema, Other Respiratory Problems/Disorders - O2 at 3L 24hours/day, hemoptysis hx Denies: Hx Asthma GI History: Reports: Other GI Disorders - Hernias with mesh implanted Denies: Hx Jaundice History: Denies: Hx Renal Disease Musculoskeletal History: Reports: Hx Congenital Bone Abnormalities - Osteochromatosis, Other Musculoskeletal History - ribs removed, chronic muscle cramps Sensory History: Reports: Hx Cataracts, Hx Contacts or Glasses Opthamlomology History: Reports: Hx Cataracts, Hx Contacts or Glasses Neurological History: Reports: Hx Migraine, Hx Transient Ischemic Attacks (TIA) Denies: Hx Dementia, Hx Headaches, Hx Seizures Psychiatric History: Reports: Hx Anxiety, Hx Depression - ON MEDS, Hx Substance Abuse Denies: Hx Eating Disorder, Hx Panic Disorder, Hx of Violent Episodes Against Others - Surgical History Surgery Procedure, Year, and Place: 2010 LEFT [place]GUINAL [place] SURGERY, [facility] [place]. 24 DIFFERENT SURGERIES FOR OSTEOCHROMOTOSIS (TUMORS), [place],. [place], [place] , [place] Hx Anesthesia Reactions: No - Immunization History Date of Tetanus Vaccine: up to date Date of Influenza Vaccine: 2016 Infectious Disease History: No Infectious Disease History: Denies: Hx Hepatitis, Hx Human Immunodeficiency Virus (HIV), Traveled Outside the [place] in Last 30 Days - Family History Known Family History: Positive: Other - CVA - Social History Occupation: Disabled Lives: Alone Alcohol Use: None Alcohol Amount: quit 16 years ago Hx Substance Use: No Substance Use Type: Reports: Other Substance Use Comment - Amount & Last Used: poly drug abuse until 2001 Hx Tobacco Use: Yes Smoking Status (MU): Former Smoker Type: Cigarettes, Pipe Amount Used/How Often: 1 pk per day Length of Time of Smoking/Using Tobacco: 38 Have You Smoked in the Last Year: No Review of Systems Positive: Other - Positive lump on right side of head Positive: Headache All Other Systems Reviewed And Are Negative: Yes Physical Exam - Summary Physical Exam Summary: VITAL SIGNS: Reviewed. GENERAL: Patient is a well-developed and nourished male who is lying comfortable in the stretcher. Patient is not in any acute respiratory distress. HEAD AND FACE: No signs of trauma. No ecchymosis, hematomas or skull depressions. No sinus tenderness. EYES: PERRLA, EOMI x 2, No injected conjunctiva, no nystagmus. EARS: Hearing grossly intact. Ear canals and tympanic membranes are within normal limits. MOUTH: Oropharynx within normal limits. NECK: Supple, trachea is midline, no adenopathy, no JVD, no carotid bruit, no c- spine tenderness, neck with full ROM. CHEST: Symmetric, no tenderness at palpation LUNGS: Clear to auscultation bilaterally. No wheezing or crackles. CVS: Regular rate and rhythm, S1 and S2 present, no murmurs or gallops appreciated. ABDOMEN: Soft, non-tender. No signs of distention. No rebound no guarding, and no masses palpated. Bowel sounds are normal. EXTREMITIES: FROM in all major joints, no edema, no cyanosis or clubbing. NEURO: Alert and oriented x 3. No acute neurological deficits. Speech is normal and follows commands. SKIN: Dry and warm. 2x2 small sebaceous cyst in the skull Triage Information Reviewed: Yes Vital Signs On Initial Exam: Initial Vitals Temp Pulse Resp BP Pulse Ox 97.8 F 100 18 132/96 91 09/03/18 13:47 09/03/18 13:47 09/03/18 13:47 09/03/18 13:47 09/03/18 13:47 Vital Signs Reviewed: Yes Diagnostics - Vital Signs Vital Signs Temp Pulse Resp BP Pulse Ox 09/03/18 13:47 97.8 F 100 18 132/96 91 - Laboratory Lab Statement: Any lab studies that have been ordered have been reviewed, and results considered in the medical decision making process. Headache Course/Dx - Course Assessment/Plan: Patient is a 68-year-old male who has a small sebaceous cyst 2 x 2 centimeters in the right temporal area of the scalp. Patient was to follow-up with a surgeon however the group of surgeons that he was referred to does not take his insurance. Therefore he came into the emergency department to get a referral for surgery. Therefore the patient will be discharged home with referral for surgery. Patient will take ibuprofen for his discomfort. - Diagnoses Provider Diagnoses: Sebaceous cyst Discharge - Sign-Out/Discharge Documenting (check all that apply): Patient Departure - Discharge home Patient Received Moderate/Deep Sedation with Procedure: No - Discharge Plan Condition: Stable Disposition: HOME Patient Education Materials: Cyst (ED) Referrals: Parker Akins MD [Primary Care Provider] - 2 Days Bridger Astorga MD [Medical Doctor] - 2 Days Additional Instructions: RETURN TO THE EMERGENCY DEPARTMENT FOR NEW OR WORSENING SYMPTOMS - Billing Disposition and Condition Condition: STABLE Disposition: Home - Attestation Statements Document Initiated by Scribe: Yes Documenting Scribe: Latoya Rose Provider For Whom Heath is Documenting (Include Credential): Dr. Graham Bernstein MD Scribe Attestation: I, lenny Ornelased for Dr. Graham Bernstein MD on 09/03/18 at 2059. Scribe Documentation Reviewed: Yes Provider Attestation: The documentation as recorded by the Latoya wick accurately reflects the service I personally performed and the decisions made by me, Dr. Graham Bernstein MD Status of Scribe Document: Viewed
[2018-09-03 14:38] VITALS: BP 0/0
== END 2018-09-03 14:37 | disposition home or self-care (01) ==
LOC: ED 13:43
DX: L72.3 Sebaceous cyst (principal); Z87.891 Personal history of nicotine dependence; J44.9 Chronic obstructive pulmonary disease, unspecified; Z86.73 Personal history of transient ischemic attack (TIA), and cerebral infarction without residual deficits
CPT/HCPCS: 99282

== ENCOUNTER 2018-10-17 14:11 | Day surgery (SDC) | payer MEDICARE, MEDICAID ==
[~2018-10-17 14:11] MED LIST: Buffered Lidocaine 1% SYRIN* 1 ML/SYRINGE INTRADERM ONE; Dexamethasone IV* 4 MG/ML 1 ML (4 MG) IV SLOW PU ONE; Famotidine IV* 10 MG/ML 2 ML (20 mg) IV ONE; Lactated Ringers 1000 ML Bag* 1,000 ML IV SCH
[2018-10-17] MEDS ORDERED: Famotidine IV* 10 MG/ML 2 ML (20 mg) ONE (15:21)
[2018-10-17] MEDS ORDERED: Dexamethasone IV* 4 MG/ML 1 ML (4 MG) ONE (15:21)
[2018-10-17] MEDS ORDERED: ceFAZolin 2 GM in NS PREMIX(*) 2 GM/100 ML BAG IVPB ONE (15:21)
[2018-10-17] MEDS ORDERED: Buffered Lidocaine 1% SYRIN* 1 ML/SYRINGE INTRADERM ONE (15:31)
[2018-10-17] MEDS ORDERED: Propofol* 10 MG/ML 20 ML BTL ONE (16:04)
[2018-10-17] MEDS ORDERED: Midazolam* 1 MG/ML 5 ML VIAL (5 MG) ONE (16:14)
[2018-10-17] MEDS ORDERED: fentaNYL* 50 MCG/ML 2 ML VIAL (100 MCG VIAL) ONE (16:15)
[2018-10-17] MEDS ORDERED: Lidocain 1% EPI 1:100,000 * 30 ML MDV ONE (16:27)
[2018-10-17] MEDS ORDERED: Naloxone* 0.4 MG/ML 1 ML VIAL IV PRN (17:16)
[2018-10-17] MEDS ORDERED: Ondansetron INJ* 2 MG/ML VIAL ONE (17:30)
[2018-10-17 18:59] VITALS: BP 134/82
== END 2018-10-17 19:18 | disposition home or self-care (01) ==
LOC: OR 14:11
PROVIDERS: ATTEND Plastic Surgery
DX: D18.09 Hemangioma of other sites (principal); J44.9 Chronic obstructive pulmonary disease, unspecified; Z99.81 Dependence on supplemental oxygen; I25.2 Old myocardial infarction; Z87.891 Personal history of nicotine dependence
CPT/HCPCS: 88305; J0690; J1100; J2250; J2405; J2704; J3010

== ENCOUNTER 2021-12-04 17:55 | Inpatient (IN) ==
[2021-12-04] MEDS ORDERED: Albuterol/Ipratropium NEB.SOL (2.5/0.5 MG) 3 ML NEB.SOLN INH ONE (19:01)
[2021-12-04 19:03] LABS: ABS Basophils 0.1 10^3/ul (0-0.2); ABS Monocytes 1.4 10^3/ul (0-0.8); ABS Neutrophils 15.1 10^3/ul (1.5-7.7); Eosinophil % 0.1 %; Hematocrit 41 % (42-52); Hemoglobin 13.8 g/dL (14.0-18.0); Lymphocyte % 5.6 %; Mean Corpuscular HGB Conc 33 g/dL (31-36); Mean Corpuscular Hemoglobin 30 pg (27-31); Mean Corpuscular Volume 92 fL (80-94); Mean Platelet Volume 7.2 fL (7.4-10.4); Platelet Count 482 10^3/uL (150-450); Red Blood Count 4.53 10^6 /uL (4.18-5.48); Red Cell Distribution Width 14 % (10-15); White Blood Count 17.6 10^3/uL (3.5-10.8)
[2021-12-04 19:26] LABS: High Sens Troponin Baseline 23 pg/mL (<20)
[2021-12-04] MEDS ORDERED: Magnesium Sulfate 2 gm BAG 2 GM/50 ML BAG IVPB ONE (20:00)
[2021-12-04] MEDS ORDERED: Lactated Ringers 1000 ml BAG 1,000 ML IV ONE (20:04)
[2021-12-04 20:18] LABS: ALT 23 U/L (7-52); Albumin 3.7 g/dL (3.2-5.2); Albumin/Globulin Ratio 1.2 (1-3); Alkaline Phosphatase 84 U/L (35-149); Blood Urea Nitrogen 19 mg/dL (6-24); CO2 Carbon Dioxide 28 mmol/L (22-32); Calcium 9.6 mg/dL (8.6-10.3); Chloride 96 mmol/L (101-111); Glucose 111 mg/dL (70-100); Sodium 133 mmol/L (135-145); Total Protein 6.7 g/dL (6.4-8.9); eGFR CKD-EPI 92.7 (>60)
[2021-12-04 20:26] LABS: High Sensitivity Troponin 1 Hr 22 pg/mL (<20)
[2021-12-04 20:40] LABS: Anion Gap 9 mmol/L (2-11)
[2021-12-04 21:36] LABS: Magnesium 2.5 mg/dL (1.9-2.7)
[2021-12-04 21:41] LABS: Potassium Redraw 4.3 mmol/L (3.5-5.0)
[2021-12-04] MEDS ORDERED: Iohexol 350 (CONTRAST) 500 ML MDV IV ONE (22:09)
[2021-12-05] MEDS ORDERED: Magnesium Hydroxide LIQ 30 ML UDC PO PRN (00:11)
[2021-12-05] MEDS: Enoxaparin 40 MG/0.4 ML SYR SUBCUT SCH ×2 (00:30→20:18)
[2021-12-05 00:51] LABS: Urine Appearance Clear; Urine Bilirubin Negative (Negative); Urine Blood 3+ (Negative); Urine Color Yellow; Urine Glucose Negative (Negative); Urine Ketones Negative (Negative); Urine Nitrite Negative (Negative); Urine Protein Negative (Negative); Urine Specific Gravity 1.035 (1.002-1.030); Urine Urobilinogen Negative (Negative)
[2021-12-05 01:01] LABS: Urine Bacteria Absent (Absent); Urine Red Blood Cell 3+(>10/hpf) (Absent); Urine White Blood Cell Trace(0-5/hpf) (Absent)
[2021-12-05 01:26] LABS: Osmolality Serum 281 mOsm/kg (275-295)
[2021-12-05 01:35] LABS: Urine Osmo 408 mOsm/kg (150-1150)
[2021-12-05 01:36] LABS: Urine Sodium Concentration < 18 mmol/L
[2021-12-05] MEDS ORDERED: Albuterol HFA INHALER 8 gm MDI INH PRN (01:36)
[2021-12-05 01:44] LABS: Urine Creatinine Concentration 62.98 mg/dL
[2021-12-05 03:59] LABS: HDL Cholesterol 40.8 mg/dL
[2021-12-05 06:56] LABS: ABS Lymphocytes 1.2 10^3/ul (1.0-4.8); ABS Monocytes 0.5 10^3/ul (0-0.8); ABS Neutrophils 12.5 10^3/ul (1.5-7.7); Hematocrit 37 % (42-52); Lymphocyte % 8.2 %; Mean Corpuscular HGB Conc 33 g/dL (31-36); Mean Corpuscular Hemoglobin 30 pg (27-31); Mean Corpuscular Volume 92 fL (80-94); Mean Platelet Volume 7.4 fL (7.4-10.4); Platelet Count 442 10^3/uL (150-450); Red Blood Count 3.96 10^6 /uL (4.18-5.48); Red Cell Distribution Width 14 % (10-15); White Blood Count 14.2 10^3/uL (3.5-10.8)
[2021-12-05] MEDS ORDERED: Mometasone/Formoter 200/5 MDI INH SCH (07:00)
[2021-12-05 07:12] LABS: Calcium 9.2 mg/dL (8.6-10.3); Potassium 4.4 mmol/L (3.5-5.0); eGFR CKD-EPI 92.7 (>60)
[2021-12-05] MEDS ORDERED: LORazepam 2 mg VIAL 1 ml IV PUSH ONE (11:20)
[2021-12-05] MEDS ORDERED: Lorazepam PYXIS KEY PRN (11:20)
[2021-12-05] MEDS ORDERED: Albuterol/Ipratropium NEB.SOL (2.5/0.5 MG) 3 ML NEB.SOLN INH SCH (12:00)
[2021-12-05] MEDS ORDERED: Albuterol HFA INHALER 8 gm MDI INH SCH (12:00)
[2021-12-05] MEDS ORDERED: Albuterol 2.5mg/3 ml (0.083%) NEB.SOLN INH ONE (12:01)
[2021-12-05] MEDS: Albuterol 2.5mg/3 ml (0.083%) NEB.SOLN INH SCH ×3 (12:09→19:36)
[2021-12-05] MEDS: Azithromycin 500 mg/250 ml NS 500 MG/250 ML BAG IVPB SCH (13:53)
[2021-12-05] MEDS: cefTRIAXone 1 gm/50 mL D5W 1 GM/50 ML BAG IV SCH (18:38)
[2021-12-05] MEDS: FLUTICASONE SALMETEROL INH SCH (19:39)
[2021-12-06] MEDS: Albuterol 2.5mg/3 ml (0.083%) NEB.SOLN INH SCH ×7 (00:09→22:55)
[2021-12-06 04:54] LABS: ABS Basophils 0.1 10^3/ul (0-0.2); ABS Lymphocytes 1.1 10^3/ul (1.0-4.8); ABS Monocytes 0.9 10^3/ul (0-0.8); ABS Neutrophils 11.9 10^3/ul (1.5-7.7); Hematocrit 34 % (42-52); Hemoglobin 11.2 g/dL (14.0-18.0); Mean Corpuscular HGB Conc 33 g/dL (31-36); Mean Corpuscular Hemoglobin 30 pg (27-31); Mean Corpuscular Volume 92 fL (80-94); Mean Platelet Volume 7.5 fL (7.4-10.4); Platelet Count 450 10^3/uL (150-450); Red Blood Count 3.72 10^6 /uL (4.18-5.48); Red Cell Distribution Width 14 % (10-15); White Blood Count 13.9 10^3/uL (3.5-10.8)
[2021-12-06 05:19] LABS: Calcium 8.7 mg/dL (8.6-10.3); Potassium 4.2 mmol/L (3.5-5.0); eGFR CKD-EPI 98.8 (>60)
[2021-12-06] MEDS: FLUTICASONE SALMETEROL INH SCH ×2 (07:09→19:39)
[2021-12-06] MEDS: Azithromycin 500 mg/250 ml NS 500 MG/250 ML BAG IVPB SCH (13:15)
[2021-12-06] MEDS: cefTRIAXone 1 gm/50 mL D5W 1 GM/50 ML BAG IV SCH (17:29)
[2021-12-06] MEDS: Enoxaparin 40 MG/0.4 ML SYR SUBCUT SCH (20:02)
[2021-12-07] MEDS: Albuterol 2.5mg/3 ml (0.083%) NEB.SOLN INH SCH ×2 (03:34→07:13)
[2021-12-07] MEDS ORDERED: Morphine 2 MG/ML SYRINGE IV ONE (04:03)
[2021-12-07 04:09] LABS: ABS Basophils 0.1 10^3/ul (0-0.2); ABS Lymphocytes 1.8 10^3/ul (1.0-4.8); ABS Monocytes 1.4 10^3/ul (0-0.8); ABS Neutrophils 10.9 10^3/ul (1.5-7.7); Eosinophil % 0.2 %; Hematocrit 35 % (42-52); Hemoglobin 11.3 g/dL (14.0-18.0); Lymphocyte % 12.7 %; Mean Corpuscular HGB Conc 32 g/dL (31-36); Mean Corpuscular Hemoglobin 30 pg (27-31); Mean Corpuscular Volume 93 fL (80-94); Platelet Count 531 10^3/uL (150-450); Red Blood Count 3.75 10^6 /uL (4.18-5.48); Red Cell Distribution Width 14 % (10-15); White Blood Count 14.2 10^3/uL (3.5-10.8)
[2021-12-07 04:46] LABS: Calcium 9.1 mg/dL (8.6-10.3); Potassium 4.5 mmol/L (3.5-5.0); eGFR CKD-EPI 95.5 (>60)
[2021-12-07 05:35] LABS: High Sensitivity Troponin 1 Hr 22 pg/mL (<20)
[2021-12-07] MEDS ORDERED: Nitroglycerin 0.4 mg/hr PATCH (10 mg) TRANSDERM ONE (06:50)
[2021-12-07] MEDS: FLUTICASONE SALMETEROL INH SCH ×2 (07:30→20:24)
[2021-12-07] MEDS ORDERED: Albuterol 2.5mg/3 ml (0.083%) NEB.SOLN INH PRN (08:54)
[2021-12-07 15:06] LABS: High Sensitivity Troponin 3 Hr 15 pg/mL (<20)
[2021-12-07] MEDS: cefTRIAXone 1 gm/50 mL D5W 1 GM/50 ML BAG IV SCH (16:39)
[2021-12-07] MEDS: Enoxaparin 40 MG/0.4 ML SYR SUBCUT SCH (21:47)
[2021-12-08 06:51] LABS: ABS Basophils 0.1 10^3/ul (0-0.2); ABS Eosinophils 0.1 10^3/ul (0-0.6); ABS Lymphocytes 2.3 10^3/ul (1.0-4.8); ABS Monocytes 1.5 10^3/ul (0-0.8); ABS Neutrophils 8.5 10^3/ul (1.5-7.7); Eosinophil % 1.1 %; Hematocrit 39 % (42-52); Hemoglobin 12.6 g/dL (14.0-18.0); Lymphocyte % 18.3 %; Mean Corpuscular HGB Conc 33 g/dL (31-36); Mean Corpuscular Hemoglobin 31 pg (27-31); Mean Corpuscular Volume 93 fL (80-94); Platelet Count 571 10^3/uL (150-450); Red Blood Count 4.14 10^6 /uL (4.18-5.48); Red Cell Distribution Width 14 % (10-15); White Blood Count 12.5 10^3/uL (3.5-10.8)
[2021-12-08] MEDS: FLUTICASONE SALMETEROL INH SCH (07:19)
[2021-12-08 07:33] LABS: Calcium 9.4 mg/dL (8.6-10.3); Magnesium 2.1 mg/dL (1.9-2.7); Potassium 4.3 mmol/L (3.5-5.0); eGFR CKD-EPI 100.1 (>60)
[2021-12-08 11:27] VITALS: BP 149/77
== END 2021-12-08 14:30 | disposition home or self-care (01) | DRG 308 ==
LOC: ED 17:55 → EDHOLD 17:55 → SUATTDRO 12-05 00:11 → MEDTELE 12-05 01:50
PROVIDERS: ADMIT Student in an Organized Health Care Education/Training Program; ATTEND Internal Medicine

== ENCOUNTER 2022-04-02 16:40 | Inpatient (IN) ==
[2022-04-02 19:47] LABS: ABS Basophils 0.1 10^3/ul (0-0.2); ABS Lymphocytes 1.7 10^3/ul (1.0-4.8); ABS Monocytes 1.4 10^3/ul (0-0.8); ABS Neutrophils 11.2 10^3/ul (1.5-7.7); Eosinophil % 0.1 %; Hematocrit 44 % (42-52); Hemoglobin 14.5 g/dL (14.0-18.0); Lymphocyte % 11.7 %; Mean Corpuscular HGB Conc 33 g/dL (31-36); Mean Corpuscular Hemoglobin 30 pg (27-31); Mean Corpuscular Volume 93 fL (80-94); Mean Platelet Volume 7.3 fL (7.4-10.4); Platelet Count 465 10^3/uL (150-450); Red Blood Count 4.79 10^6 /uL (4.18-5.48); Red Cell Distribution Width 14 % (10-15); White Blood Count 14.4 10^3/uL (3.5-10.8)
[2022-04-02 19:52] LABS: INR 2.52 (0.89-1.11)
[2022-04-02 20:29] LABS: Albumin 4.2 g/dL (3.2-5.2); Albumin/Globulin Ratio 1.5 (1-3); Globulin 2.8 g/dL (2-4); Potassium 4.5 mmol/L (3.5-5.0); eGFR CKD-EPI 76.7 (>60)
[2022-04-02 21:39] LABS: High Sensitivity Troponin 1 Hr 19 pg/mL (<20)
[2022-04-02] MEDS ORDERED: methylPREDNISolone SOD SUCC 125 mg 2 ML VIAL IV ONE (21:40)
[2022-04-02] MEDS ORDERED: Albuterol 2.5mg/3 ml (0.083%) NEB.SOLN INH ONE ×2 (21:40→23:03)
[2022-04-02] MEDS ORDERED: cefTRIAXone 1 gm/50 mL D5W 1 GM/50 ML BAG IV ONE (22:40)
[2022-04-03] MEDS ORDERED: Lactated Ringers 1000 ml BAG 500 ML IV ONE (00:32)
[2022-04-03 00:43] LABS: C Reactive Protein 269.11 mg/L (<8.01)
[2022-04-03] MEDS ORDERED: Metoprolol Tartrate 5 mg VIAL 5 ml VIAL (1 mg/ml) IV ONE (01:00)
[2022-04-03] MEDS ORDERED: Azithromycin 500 mg/250 ml NS 500 MG/250 ML BAG IVPB ONE (01:01)
[2022-04-03] MEDS ORDERED: Albuterol HFA INHALER 8 gm MDI INH PRN (03:41)
[2022-04-03] MEDS ORDERED: Lactated Ringers 1000 ml BAG 1,000 ML IV SCH (05:00)
[2022-04-03] MEDS: Albuterol/Ipratropium NEB.SOL (2.5/0.5 MG) 3 ML NEB.SOLN INH PRN ×2 (12:19→23:38)
[2022-04-03] MEDS ORDERED: Mometasone/Formoter 100/5 MDI INH SCH (19:00)
[2022-04-03] MEDS: Mometasone/Formoter 200/5 MDI INH SCH (19:54)
[2022-04-03] MEDS ORDERED: cefTRIAXone 1 gm/50 mL D5W 1 GM/50 ML BAG IV SCH (23:00)
[2022-04-04] MEDS: Albuterol/Ipratropium NEB.SOL (2.5/0.5 MG) 3 ML NEB.SOLN INH PRN ×2 (04:41→13:36)
[2022-04-04 06:08] LABS: ABS Lymphocytes 1.2 10^3/ul (1.0-4.8); ABS Monocytes 0.9 10^3/ul (0-0.8); ABS Neutrophils 10.9 10^3/ul (1.5-7.7); Hematocrit 37 % (42-52); Hemoglobin 12.7 g/dL (14.0-18.0); Lymphocyte % 8.9 %; Mean Corpuscular HGB Conc 34 g/dL (31-36); Mean Corpuscular Hemoglobin 32 pg (27-31); Mean Corpuscular Volume 93 fL (80-94); Mean Platelet Volume 7.6 fL (7.4-10.4); Platelet Count 446 10^3/uL (150-450); Red Blood Count 4.01 10^6 /uL (4.18-5.48); Red Cell Distribution Width 14 % (10-15)
[2022-04-04 06:41] LABS: Calcium 9.2 mg/dL (8.6-10.3); Magnesium 2.3 mg/dL (1.9-2.7); Potassium 4.7 mmol/L (3.5-5.0); eGFR CKD-EPI 91.1 (>60)
[2022-04-04] MEDS: Mometasone/Formoter 200/5 MDI INH SCH (08:14)
[2022-04-04] MEDS ORDERED: Azithromycin 500 mg/250 ml NS 500 MG/250 ML BAG IVPB SCH (09:00)
[2022-04-04] MEDS ORDERED: Lactated Ringers 500 ml BAG 500 ML IV ONE ×2 (12:59→13:03)
[2022-04-04 14:40] VITALS: BP 102/69
== END 2022-04-04 16:50 | disposition home or self-care (01) | DRG 871 ==
LOC: ED 16:40 → SUATTDRO 04-03 03:37 → EDHOLD 04-03 03:37 → MED 04-03 13:19
PROVIDERS: ADMIT Internal Medicine; ATTEND Family Medicine